=== PATIENT | female | born 1955 | race Two or more races ===

== ENCOUNTER 2025-05-24 06:45 | Day surgery (SDC) | payer MEDICARE, MEDICAID, SELFPAY ==
[2025-05-21 13:44] VITALS: BMI 39.6
[2025-05-24] VITALS (9 sets, daily range): BP systolic 133–173; BP diastolic 69–102; PULSE 67–91; RESP 16–22; TEMP 36.4–36.6; O2SAT 97–100; BMI 39.4
[2025-05-24] MEDS: fentaNYL CIT INJ 50 mCg/ML AMP 2ML (ASD USE ONLY) IVP (07:30)
[2025-05-24] MEDS: MIDAZOLAM INJ 1 MG/ML VIAL 2 ML (ASD USE ONLY) 2 MG IVP (07:33)
[2025-05-24] MEDS: SODIUM CHLORIDE 0.9% 500 ML 500 ML 125 ML IV (07:37)
--- NOTE | 2025-05-24 07:49 | SUR.PHASEII ---
0749 patient into recovery with no acute distress noted, v/s stable, no complaints of pain or nausea at this time. patient repositions self for comfort. pt actively passing flatus. report received from Claire VALENZUELA.
--- NOTE | 2025-05-24 08:26 | SUR.PHASEII ---
0820 patient ambulates to bathroom with no assistance needed to dress self. 0822 D/C instructions given to patient and spouse by Agustina RN/Certified type disk quality control supervisor. patient D/C'ed home at 0826.
== END 2025-05-24 08:26 | disposition home or self-care (01) ==
PROVIDERS: PCP Nurse Practitioner; Referring Provider Surgery; Visit Provider Surgery
PROC: 0DBE8ZX Excision of Large Intestine, Via Natural or Artificial Opening Endoscopic, Diagnostic (ICD-10-PCS; CPT 45380; principal; 2025-05-24 07:30)
DX: D12.7 Benign neoplasm of rectosigmoid junction (principal); K64.1 Second degree hemorrhoids
CPT/HCPCS: 45380; 45385; J1200; J2250; J3010; J7999

== ENCOUNTER → 2025-07-30 | Outpatient (CLI) | payer MEDICARE, MEDICAID, SELFPAY ==
--- NOTE | 2025-07-30 | XR_ITS ---
Examination: Foot, right, 3 views Technique: AP, oblique, lateral views foot, 3 views Date and time of exam: July 30, 2025 1220 hours INDICATIONS: Right foot pain beginning one month ago FINDINGS: Mild hallux valgus bunion deformity Mild osteoarthritis first metatarsophalangeal joint Moderate osteopenia Mild to moderate osteoarthritis first second and third tarsometatarsal joints No erosive arthritis 10 mm plantar 10 mm posterior bony calcaneal spurs IMPRESSION: Mild bunion deformity Osteoarthritis as above Significant plantar posterior bony calcaneal spurs
--- NOTE | 2025-07-30 | XR_ITS ---
Examination: Shoulder,right, 3 views Technique: Shoulder AP internal rotation, AP external rotation, Y view shoulder, 3 views Exam date and time :July 30, 2025 1211 hours INDICATIONS: Right shoulder pain beginning one week ago. FINDINGS: Prominent osteopenia. Moderate to advanced narrowing glenohumeral joint. No shoulder fracture or dislocation IMPRESSION: Moderate to advanced osteoarthritis right glenohumeral joint
== END | disposition home or self-care (01) ==
PROVIDERS: PCP Nurse Practitioner; Referring Provider Nurse Practitioner; Visit Provider Nurse Practitioner
DX: M19.011 Primary osteoarthritis, right shoulder (principal); M21.611 Bunion of right foot; M77.31 Calcaneal spur, right foot; M19.071 Primary osteoarthritis, right ankle and foot
CPT/HCPCS: 73030; 73630

== ENCOUNTER 2025-10-22 08:42 | Outpatient (RCR) | payer MEDICARE, MEDICAID, SELFPAY ==
--- NOTE | 2025-10-22 11:28 | PT.OIERPT ---
PT OP Initial Eval Patient Information Outpatient Physical Therapy Treatment Date: 10/22/25 Visit Reasons: right shoulder pain Medical Diagnosis: Right Shoulder OA Treatment Dx #1: Right Shoulder Pain Treatment Dx #2: Right Shoulder Mobility Deficits Start of Care: 10/22/25 Date of Onset: 1 month ago Smoking Status Smoking Status: Never smoker Initial Assessment Subjective: Pt is a 70 y/o female reports of chronic right shoulder pain (7/10) worsening in the past month. Pt's most recent xray showed moderate to advanced OA. No MRI has been done thus far. Pt has limitation with overhead motions, lifting, chores, self care, cooking, cleaning, work duties, and performing recreational activities. Objective: Right Shoulder PROM: all motions are WFL with end range pain in all plane Right Shoulder AROM Flexion: 160 deg External Rotation: 160 deg External Rotation: 80 deg Internal Rotation: 60 deg Right Shoulder MMTs: grossly 3/5 Right Scapula MMTs: grossly 3/5 Special Test (+) hawkin-chris (+) neer's Palpation: TTP supraspinatus tendon Assessment: Pt demonstrate right shoulder mobility and strength deficits with pain leading to difficulty with ADLs. Pt will attempt physical therapy if pain persist Pt will be refer back to provider for further consultation Short Term and [employer] Goals 1) Increase right shoulder AROM WNL in 6 wks to be able to perform overhead motions 2) Decrease shoulder pain to 2/10 in 6 wks to be able to perform chores 3) Increase right shoulder MMTs grossly to 4/5 in 6 wks to be able to work 4) Increase right scapula MMTs grossly to 3+/5 in 6 wks to be able to perform self care activities 5) Indep with HEP Treatment Plan 1) Manual Therapy 2) Therapeutic Activities 3) Therapeutic Exercises 4) Modalities (ice, heat) Frequency and Duration: 2 x wk for 6 wks Certification Dates: 10/22/25 to 01/20/26 Procedure Charges OP PT Eval Mod Complex 30 minutes: Yes
== END 2025-11-10 23:59 | disposition home or self-care (01) ==
LOC: CPTX 08:42
PROVIDERS: PCP Nurse Practitioner; Referring Provider Nurse Practitioner; Visit Provider Nurse Practitioner
DX: M25.511 Pain in right shoulder (principal); G89.29 Other chronic pain; M19.011 Primary osteoarthritis, right shoulder
CPT/HCPCS: 97162